=== PATIENT | female | born 1940 | race Caucasian/White ===

== ENCOUNTER 2017-05-17 12:03 | Emergency (ER) | payer MEDICARE, BC ==
[~2017-05-17] VITALS: Ht 167.6 cm; Wt 104.3 kg
--- NOTE | ~2017-05-17 | CT71 ---
[facility] A Service of [facility] RADIOLOGY TEXT RESULTS PATIENT: RADHA RIVERO LOCATION: SED : 42 UNIT #: [id number] AGE: [address]: Magan Cardenas MD SEX: F ORDER DR: [id number] [place] [id number] E MR#: [id number] Acc #: [id number] NAME: RADHA RIVERO. : 1940 SEX: F STUDY DATE/TIME: 05/17/2017 13:08 UNIT: SED ROOM: STUDY DESCRIPTION: CT Head Wo Contrast Attending Physician: Magan Cardenas M.D. Ordering Physician: Magan Cardenas M.D. Primary Care Physician: Braydon Wong M.D. MEDICAL IMAGING REPORT This report is preliminary unless electronic signature is present. REVISED REPORT EXAM Noncontrast head CT HISTORY 76-year-old female with tachycardia, shortness of air, dizziness for [address] exam was performed with one or more of the following radiation dose reduction techniques: Automatically exposure control, adjustment of mA and / kV according to patient size, and iterative reconstruction. FINDINGS Axial noncontrast imaging of the brain demonstrates a small approximately 5 mm increased attenuation in the left cerebellar hemisphere. It is nonspecific and could represent a focal hemorrhage. Calcification also a consideration. No mass effect or midline shift. The remainder of the brain parenchyma unremarkable. The ventricles, sulci, and basilar cisterns are normal. Impression: 5mm hyperdensity left cerebellum may represent a small bleed or venous angioma or calcification. Rec further evaluation. STAT * RESULT Dictated by... [facility] A Service of [facility] RADIOLOGY TEXT RESULTS PATIENT: RADHA RIVERO LOCATION: SED : 42 UNIT #: [id number] AGE: [address]: Magan Cardenas MD SEX: F ORDER DR: Kaden Bunn M.D. THIS IS AN ELECTRONICALLY VERIFIED REPORT Kaden Bunn M.D. at 06/23/2017 11:06 PM GIOVANA/suraj TD: 05/17/2017 14:39 JOB #: [id number] MEDICAL IMAGING REPORT Page 1 of 1
--- NOTE | ~2017-05-17 | EKG ---
PATIENT: RADHA RIVERO UNIT #: [id number] Ventricular Rate: 97 BPM Atrial Rate: 416 BPM QRS Duration: 90 ms Q-T Interval: 338 ms QTC Calculation(Bezet): 429 ms Calculated R [place]hton: -19 degrees Calculated T Ashton: 65 degrees Diagnosis Line: Atrial fibrillation with premature ventricular or Diagnosis Line: aberrantly conducted complexes Diagnosis Line: Septal infarct , age undetermined Diagnosis Line: Abnormal ECG Diagnosis Line: No previous ECGs available Diagnosis Line: Confirmed by LIZ IRVIN MD ([id number]) on Diagnosis Line: 05/21/2017 8:39:17 AM INTERPRETING MD: ALBARO JOY
--- NOTE | ~2017-05-17 | CR72 ---
[facility] A Service of [facility] RADIOLOGY TEXT RESULTS PATIENT: RADHA RIVERO LOCATION: SED : 42 UNIT #: [id number] AGE: [address]: Magan Cardenas MD SEX: F ORDER DR: [id number] [place] [id number] E MR#: [id number] Acc #: [id number] NAME: RADHA RIVERO : 1940 SEX: F STUDY DATE/TIME: 05/17/2017 13:09 UNIT: SED ROOM: STUDY DESCRIPTION: CR Chest Single View Portable Attending Physician: Magan Cardenas M.D. Ordering Physician: Magan Cardenas M.D. Primary Care Physician: Braydon Wong M.D. MEDICAL IMAGING REPORT This report is preliminary unless electronic signature is present. EXAM Portable chest. HISTORY Shortness of air, dizziness x3 hours. COMPARISON 11/21/2015 FINDINGS Portable view of the chest demonstrates cardiomegaly with prominence of pulmonary vascular interstitium. Derrick B lines noted. Mild thickening of the fissure. Findings all compatible with CHF. No dense consolidation. No sizeable effusions. No pneumothorax. Dictated by... Kaden Bunn M.D. THIS IS AN ELECTRONICALLY VERIFIED REPORT Kaden Bunn M.D. at 05/17/2017 9:36 PM Otto TD: 05/17/2017 20:07 JOB #: [id number] MEDICAL IMAGING REPORT Page 1 of 1
[~2017-05-17 12:03] MED LIST: ALPRAZOLAM PO; ANTIVERT PO; KLONOPIN PO; LIPITOR PO; LISINOPRIL PO; METFORMIN PO
[2017-05-17] MEDS ORDERED: METFORMIN (12:18)
[2017-05-17] MEDS ORDERED: FARXIGA5 MG (12:18)
[2017-05-17] MEDS ORDERED: LISINOPRIL20 MG (12:18)
[2017-05-17] MEDS ORDERED: LIPITOR40 MG PO (12:18)
[2017-05-17] MEDS ORDERED: AMLODIPINE BESYL5 MG PO (12:18)
[2017-05-17] MEDS ORDERED: VOLTAREN75 MG (12:19)
[2017-05-17 12:32] LABS: BASOPHIL# 0.1 X10e3 (0-0.3); BASOPHIL% 0.6 % (0-2.5); EOSINOPHIL% 0.3 % (0.0-7.0); HEMATOCRIT 44.5 % (35.0-45.0); HEMOGLOBIN 14.6 gm/dL (12.0-16.0); LYMPHOCYTE# 1.2 X10e3 (1.0-3.5); LYMPHOCYTE% 10.7 % (17.0-45.0); MEAN CELL VOLUME 82.3 FL (83-96); MEAN CORPUSCULAR HGB CONC 32.8 g/dL (30-36); MEAN PLATELET VOLUME 8.3 FL (6.5-11.5); MONOCYTE# 0.6 X10e3 (0-1.0); MONOCYTE% 5.6 % (3.0-12.0); NEUTROPHIL# 9.3 X10e3 (1.5-7.1); NEUTROPHIL% 82.8 % (40-75); PLATELET COUNT 237 X10e3 (140-420); RED BLOOD COUNT 5.41 X10e (3.90-5.30); RED CELL DISTRIBUTION WIDTH 14.5 % (11.0-15.5); WHITE BLOOD COUNT 11.2 X10e3 (4.0-10.5)
[2017-05-17 12:33] LABS: DIFF IND NO
[2017-05-17 12:45] LABS: POC - TROPONIN <0.05 ng/mL (<=0.05)
[2017-05-17 12:51] LABS: ALBUMIN SERUM 4.2 g/dL (3.5-5.0); BILIRUBIN, DIRECT 0.1 mg/dL (0.0-0.2); BILIRUBIN,INDIRECT 0.4 mg/dL (0.0-0.9); BILIRUBIN,TOTAL 0.5 mg/dL (0.2-2.0); BUN/CREATININE RATIO 23.33; CALCIUM SERUM 9.2 mg/dL (8.4-10.2); CREATININE SERUM 0.6 mg/dL (0.6-1.4); GLOM FILT RATE Estimated 89.8 mL/min (>60); POTASSIUM 3.9 mmol/L (3.5-5.1); PROTEIN TOTAL SERUM 7.5 g/dL (6.0-8.3)
[2017-05-17 15:15] LABS: POC - CKMB 1.1 ng/mL (0.0-7.9); POC - TROPONIN <0.05 ng/mL (<=0.05)
== END 2017-05-17 17:26 ==
LOC: SED 12:03
PROVIDERS: Emergency Medicine
DX: I62.9 Nontraumatic intracranial hemorrhage, unspecified (principal); I48.91 Unspecified atrial fibrillation; I11.0 Hypertensive heart disease with heart failure; I50.9 Heart failure, unspecified; E11.40 Type 2 diabetes mellitus with diabetic neuropathy, unspecified
CPT/HCPCS: 36415; 70450; 71010; 80048; 80076; 82553; 82947; 83735; 83880; 84484; 85025; 93005; 96372; 96374; 99291; J1650; J1940